=== PATIENT | male | born 2005 ===

== ENCOUNTER 2024-10-14 06:00 | Day surgery (SDC) | payer OTHER ==
[2024-10-08 11:27] VITALS: BP 131/72
[~2024-10-14] VITALS: Ht 172.7 cm; Wt 86.2 kg
[2024-10-14] MEDS ORDERED: CEFTRIAXONE SODIUM 2,000 MG VIAL ONE (07:32)
[2024-10-14] MEDS ORDERED: METRONIDAZOLE/SODIUM CHLORIDE 500 MG/100 ML PIGGYBACK IV ONE (07:32)
[2024-10-14] MEDS ORDERED: BUPIVACAINE HCL/MPF 0.5% 30ML VIAL ONE (08:53)
[2024-10-14] MEDS ORDERED: LIDOCAINE HCL 1%/EPINEPHRINE 20ML VIAL IJ ONE (08:53)
[2024-10-14] MEDS ORDERED: POVIDONE-IODINE 118 ML BOTT TOP ONE (08:54)
[2024-10-14] MEDS ORDERED: DIBUCAINE 30 GM TUBE ONE (08:54)
[2024-10-14] MEDS ORDERED: HEMOSTATIC MATRIX 1 KIT KIT TOP ONE (08:54)
[2024-10-14] MEDS ORDERED: THROMBIN,HU/FIBRINOGEN/CALCIUM 4 ML SYRINGE TOP ONE (09:26)
== END 2024-10-14 16:35 | disposition home or self-care (01) ==
LOC: CIR.AMB 06:00
PROVIDERS: ATTEND Colon & Rectal Surgery
DX: L05.91 Pilonidal cyst without abscess (principal)